=== PATIENT | male | born 1965 | race Caucasian/White ===

== ENCOUNTER 2017-07-15 17:12 | Emergency (ER) | payer BC, OTHER ==
--- NOTE | 2017-07-15 17:24 | EDM.PDOC ---
ED HPI GENERAL MEDICAL PROBLEM - General Chief Complaint: ENT Problem Stated Complaint: NEEDS CREAM FOR EYE [id number] Time Seen by Provider: 07/15/17 17:24 Source of Information: Reports: Patient, RN, RN Notes Reviewed History Limitations: Reports: No Limitations - History of Present Illness INITIAL COMMENTS - FREE TEXT/NARRATIVE: C/O irritation and itching to upper Rt eye lid for the last couple of weeks. Pt states it feels rough and itchy like eczema. Denies injury or exposure to any known irritant. Onset: Gradual Duration: Constant Location: Reports: Other (Rt eyelide) Quality: Reports: Other (itches, denies pain) Severity: Severe Improves with: Reports: None Worsens with: Reports: None Associated Symptoms: Reports: No Other Symptoms - Related Data Allergies Allergy/AdvReac Type Severity Reaction Status Date / Time acetaminophen [From Percocet] Allergy Itching Verified 07/15/17 17:18 oxycodone [From Percocet] Allergy Itching Verified 07/15/17 17:18 Home Meds: Home Meds Esomeprazole [NexIUM] 40 mg PO DAILY 07/15/17 [History] Levothyroxine [Synthroid] 50 mg PO DAILY 07/15/17 [History] Terazosin HCl [Terazosin] 5 mg PO BEDTIME 07/15/17 [History] Past Medical History Cardiovascular History: Reports: Hypertension Gastrointestinal History: Reports: GERD Endocrine/Metabolic History: Reports: Hypothyroidism Social & Family History - Family History Family Medical History: Noncontributory - Living Situation & Occupation Living situation: Reports: Occupation: Employed ED ROS GENERAL - Review of Systems Review Of Systems: ROS reveals no pertinent complaints other than HPI. ED EXAM GENERAL W FULL EYE - Physical Exam Exam: See Below Exam Limited By: No Limitations General Appearance: Alert, WD/WN, No Apparent Distress Eye Exam: Bilateral Eye: EOMI, Normal Inspection, PERRL Eyelids: Right: Other (skin of Rt upper eyelid dry, rough, and excoriated), Left : Normal Appearance Conjunctiva & Sclera: Bilateral: Normal Appearance Extraocular Movements: Bilateral: Intact Pupils: Normal Accommodation Pupillary Size: Bilateral: 4 mm Pupillary Reaction: Bilateral: Brisk Ears: Normal External Exam, Hearing Grossly Normal Nose: Normal Inspection Throat/Mouth: Normal Inspection Head: Atraumatic, Normocephalic Neck: Normal Inspection Respiratory/Chest: No Respiratory Distress, Lungs Clear, Normal Breath Sounds, No Accessory Muscle Use, Chest Non-Tender Cardiovascular: Regular Rate, Rhythm Neurological: Alert, No Motor/Sensory Deficits Course - Vital Signs Last Recorded V/S: Last Vital Signs Temp 37.0 C 07/15/17 17:20 Pulse 72 07/15/17 17:20 Resp 12 07/15/17 17:20 BP 136/73 07/15/17 17:20 Pulse Ox 100 07/15/17 17:20 Departure - Departure Time of Disposition: 17:42 Disposition: Home, Self-Care 01 Condition: Good Clinical Impression: Eczema of eyelid, right - Discharge Information Referrals: PCP,Not In Area [Primary Care Provider] - Forms: ED Department Discharge Additional Instructions: Rx: Tobradex Ophthalmic Ointment Use over the counter Loratadine 10mg one tablet daily for 2 to 3 weeks. Follow up in clinic if not improved in 5 to 7 days.
== END 2017-07-15 17:52 | disposition home or self-care (01) ==
LOC: DL.ED 17:12
DX: L30.9 Dermatitis, unspecified (principal); I10 Essential (primary) hypertension; E03.9 Hypothyroidism, unspecified; K21.9 Gastro-esophageal reflux disease without esophagitis; Z88.6 Allergy status to analgesic agent; Z88.5 Allergy status to narcotic agent
CPT/HCPCS: 99282